=== PATIENT | female | born 2000 ===

== ENCOUNTER 2023-12-07 15:39 | Emergency (ER) | payer BC, SELFPAY ==
[2023-12-07 15:41] VITALS: BP 134/96
--- NOTE | 2023-12-07 17:31 | ED.GENMED ---
History of Present Illness
<Mila Interiano PA-C - Last Filed: 12/08/23 01:03>
General
Chief Complaint: Abdominal Symptoms
Source: patient and family (mom at bedside)
Exam Limitations: none
Time Seen by Provider: 12/07/23 17:12
Nursing documentation reviewed up to this point in time: agreed with
Travel History
Have you had any contact with someone who has COVID-19?: No
Do you have any symptoms of coronavirus? Fever > 100 degrees, chills, cough, shortness of breath, sore throat, loss of taste or smell, muscle aches, or headache?: No
History of Present Illness
History of Present Illness:
Patient is a 23-year-old female with history anxiety presenting for evaluation of lower abdominal pain. Symptoms started acutely this morning around 11 AM with lower abdominal pain and associated nausea. She did have a few episodes of vomiting
this morning. Patient does endorse some lower back pain, as well. She did start her period today and believed that she was having severe menstrual cramps. She has a history of painful menstrual cramps in the past but states this is much more
severe.
She denies any fever, chills, diarrhea/constipation, urinary symptoms. She denies any chest pain or shortness of breath.
She does have a history of ovarian cysts.
Of note�patient recently ran out of her prescription for Zoloft and has been unable to follow-up with her primary care provider to have this refilled. She has been increasingly anxious.
Phy Exam
<Mila Interiano PA-C - Last Filed: 12/08/23 01:03>
Physical Exam
Physical Exam:
General: Very anxious appearing, tremulous; nontoxic appearing
Vitals: Vital signs stable, mildly febrile
HEENT: Atraumatic, normocephalic; pupils equal round and reactive to light bilaterally, protecting airway
Neck: appears supple no JVD
CV: Regular rate and rhythm, heart sounds normal, no evidence of cyanosis
Resp: No evidence of respiratory distress, lungs clear bilaterally
Abd: Soft, somewhat diffuse tenderness most significant in right lower quadrant, no rebound tenderness or guarding, non-distended
Extremities: No deformities, no evidence of cyanosis or edema
Neuro: alert and oriented x 3; grossly intact
Psych: Anxious
Skin: Intact no rashes
Course
<Mila Interiano PA-C - Last Filed: 12/08/23 01:03>
Orders/Labs/Results
Orders:
Orders
12/07/23 17:35
0.9% Sodium Chloride 1000 ml [Nss] 1,000 ml IV BOLUS
Test Result ONCE
US Pelvis Only (non-obstetric) Urgent
Comment:
Reason For Exam: right lower quadrant pain
12/07/23 17:36
CT Abd/pel W Iv And Oral Contr Urgent
Comment:
Reason For Exam: right lower quadrant pain
Iohexol [Omnipaque] See Protocol PO NOW STA
12/07/23 18:20
Complete Blood Count/With Diff Urgent
Comprehensive Metabolic Panel Urgent
HCG, Serum Qualitative Screen Urgent
12/07/23 20:39
Urinalysis Reflex To Culture Urgent
Date Specimen was Collected: 12/07/23
Time Specimen was Collected: 20:37
Abnormal Lab Results
12/07/23
18:20
Hgb 11.3 L g/dL
(12.0-16.0)
Hct 33.8 L %
(37.0-47.0)
MCV 77.2 L fL
(81.0-99.0)
MCH 25.8 L pg
(27.0-31.0)
12/07/23 18:20
12/07/23 18:20
Vital Signs
Initial and Last Documented VS:
Initial Vital Signs
Temp Pulse Resp BP Pulse Ox
98.4 F 89 18 134/96 99
12/07/23 15:41 12/07/23 15:41 12/07/23 15:41 12/07/23 15:41 12/07/23 15:41
Last Documented Vital Signs
Temp Pulse Resp BP Pulse Ox
98.4 F 70 16 109/68 99
12/07/23 15:41 12/07/23 22:10 12/07/23 22:10 12/07/23 22:10 12/07/23 22:10
<Zeferino De La Torre, DO - Last Filed: 12/07/23 17:54>
Orders/Labs/Results
Orders:
Orders
12/07/23 17:35
0.9% Sodium Chloride 1000 ml [Nss] 1,000 ml IV BOLUS
Test Result ONCE
US Pelvis Only (non-obstetric) Urgent
Comment:
Reason For Exam: right lower quadrant pain
12/07/23 17:36
CT Abd/pel W Iv And Oral Contr Urgent
Comment:
Reason For Exam: right lower quadrant pain
Iohexol [Omnipaque] See Protocol PO NOW STA
12/07/23 18:20
Complete Blood Count/With Diff Urgent
Comprehensive Metabolic Panel Urgent
HCG, Serum Qualitative Screen Urgent
12/07/23 20:39
Urinalysis Reflex To Culture Urgent
Date Specimen was Collected: 12/07/23
Time Specimen was Collected: 20:37
Abnormal Lab Results
12/07/23
18:20
Hgb 11.3 L g/dL
(12.0-16.0)
Hct 33.8 L %
(37.0-47.0)
MCV 77.2 L fL
(81.0-99.0)
MCH 25.8 L pg
(27.0-31.0)
12/07/23 18:20
12/07/23 18:20
Vital Signs
Initial and Last Documented VS:
Initial Vital Signs
Temp Pulse Resp BP Pulse Ox
98.4 F 89 18 134/96 99
12/07/23 15:41 12/07/23 15:41 12/07/23 15:41 12/07/23 15:41 12/07/23 15:41
Last Documented Vital Signs
Temp Pulse Resp BP Pulse Ox
98.4 F 70 16 109/68 99
12/07/23 15:41 12/07/23 22:10 12/07/23 22:10 12/07/23 22:10 12/07/23 22:10
<Mila Interiano PA-C - Last Filed: 12/08/23 01:03>
MDM/Problems Addressed
Differential Diagnosis Includes:
Menstrual pain, ovarian cyst, ovarian torsion, tubo-ovarian abscess, appendicitis, UTI, kidney stone, pyelonephritis
MDM/Problems Addressed:
Patient is a 23-year-old female history anxiety, ovarian cysts presenting for evaluation of acute onset lower abdominal pain earlier today with associated nausea and vomiting. Some radiation to low back. Started her period today and initially
believed was severe menstrual cramps - feels similar but more intense. No fever, chills, urinary symptoms. Patient is very anxious appearing on initial examination, somewhat tremulous. Vitals are stable - low grade temp of 100.4. Physical exam as
documented above. Abdomen is soft, moderate tenderness in right lower quadrant without rebound or guarding. No CVA tenderness. Although symptoms consistent with menstrual cramps- given low grade fever and intensity of pain will check basic labs, UA,
hcg, pelvic US, and CT scan. Starting IVF. Patient denies pain medication at this time.
In to re-examine patient. She appears much less anxious, no longer tremulous. Labwork and imaging pending.
CBC without any clinically significant abnormalities. CMP shows no abnormalities. HCG negative. UA without any signs of infection.
US shows no acute findings. CT scan shows no acute abdominal process, appendix appears non-inflamed. Some nonspecific dilation of right ureter was noted without any evidence of stones- do not suspect this to be contributing to patients symptoms.
Workup negative. Patient relatively comfortable- has not required pain medication since arrival to ER. Temperature in normal range on reassessment - 98.4F. Symptoms likely related to menses onset. Will discharge with primary care/obgyn follow-up and
NSAIDs for pain. Given degree of anxiety and lapse in care- will provide script for patient to resume her zoloft with arrangement for pcp prompt follow-up. Patient and patients mom comfortable with this plan. All questions answered.
Chronic conditions affecting care:
Anxiety
Acute Exacerbation and/or Progression of Chronic Illness:
N/A
<Mila Interiano PA-C - Last Filed: 12/08/23 01:03>
*Radiology
Radiology exam reviewed: preliminary read by ED provider and radiology read reviewed
*Pulse Oximetry
Patient hypoxic: no
*Rotary Drier Operator Interpretation
Rate: Rotary Drier Operator- N/A
*Critical Care Note
Total Time (30-74mins, 75-104mins- exclusive of procedures): Not Applicable
ED Attending Note
<Mila Interiano PA-C - Last Filed: 12/08/23 01:03>
-
Portions of this chart may have been created with voice recognition software.� Occasional wrong word or��sound alike� substitutions may have occurred due to the inherent limitations of voice recognition software.
<Zeferino De La Torre DO - Last Filed: 12/07/23 17:54>
ED Attending Note
Patient seen and examined by attending physician: Yes
I performed the substantive portion of visit, reviewed & personally made and approve the management plan that is documented in note by myself or LEEANN.: Yes
ED Attending Note:
Seen with PA examined independently, 23-year-old female with ovarian cysts, painful periods, anxiety off her meds, presents with lower abdominal pain nausea, low-grade temperature here, trembling all appears anxious, will check hCG CBC, ultrasound
CAT scan try to get her feeling better
Discharge Plan
Departure
Patient Disposition: Home (Routine Discharge)
Date of Disposition: 12/07/23
Time of Disposition: 21:59
Patient with high blood pressure during this ER visit?: Yes
Condition: Good
Covid-19: Not Applicable
Discharge Problem:
Abdominal pain
Instructions: Abdominal Pain, BLOOD PRESSURE
Prescriptions:
New
sertraline 50 mg tablet
50 mg PO DAILY Qty: 30 0RF
Referrals:
Galdino Byers, DO [Family Provider] -
Activity Restrictions/Additional Instructions:
- Return to the emergency department with any high fevers, severe abdominal pain, persistent nausea, intractable vomiting, severe back pain, urinary symptoms, worsening in current symptoms, or any other concerns
-You can take ibuprofen as needed for discomfort
-It is important to stay well-hydrated
-As discussed�you should follow-up with primary care for further evaluation/management. I have sent in a request to connect you with a primary care provider.
Interventions
Interventions:
*Risk Screen - Suicide Last Done: 12/07/23 15:41
*General Assessment Last Done: 12/07/23 15:41
*Neglect/Abuse Screening Last Done: 12/07/23 15:41
ED- Fall Risk Assessment Last Done: 12/07/23 22:23
*ED COVID-19 Vaccine History Last Done: 12/07/23 15:41
*Nursing Disposition Last Done: 12/07/23 22:23
EE-Pttamd-Ilkiyueueh Assessment Last Done: 12/07/23 17:59
Discharge Date and Time
Discharge Date/Time: 12/07/23 22:23
[2023-12-07] MEDS: OMNIPAQUE 50 ML PO (17:45)
[2023-12-07] MEDS: NSS 1000 IV (18:23)
[2023-12-07 18:26] LABS: % Basophils 0.4 % (0-2); % Eosinophils 1.3 % (0-6); % Immature Granulocytes 0.1 % (0-0.5); % Lymphocytes 28.4 % (20.5-51.1); % Monocytes 8.2 % (1.7-9.3); % Neutrophils 61.6 % (42.2-75.2); Absolute Eosinophils 0.1 10^3/uL (0-0.7); Absolute Lymphocytes 2.1 10^3/uL (1.2-3.4); Absolute Monocytes 0.6 10^3/uL (0.1-0.6); Absolute Neutrophils 4.6 10^3/uL (1.4-6.5); Hematocrit 33.8 % (37.0-47.0); Hemoglobin 11.3 g/dL (12.0-16.0); Mean Corp Hgb Conc. 33.4 g/dL (33.0-37.0); Mean Corpuscular Hgb 25.8 pg (27.0-31.0); Mean Corpuscular Volume 77.2 fL (81.0-99.0); Mean Platelet Volume 10.1 fL (7.4-10.4); Nucleated Red Blood Cells % 0 %; Platelet Count 248 10^3/uL (130-400); Red Blood Cell Count 4.38 10^6/uL (4.20-5.40); Red Cell Dist. Width 13.3 % (11.5-14.5); White Blood Cell Count 7.4 10^3/uL (4.8-10.8)
[2023-12-07 18:42] LABS: HCG, Serum Qualitative Screen Negative
[2023-12-07 18:47] LABS: ALT (SGPT) 13 U/L (0-35); AST (SGOT) 19 U/L (14-36); Albumin 4.2 g/dl (3.5-5.0); Alkaline Phosphatase 69 U/L (38-126); Blood Urea Nitrogen 12 mg/dl (7-17); Calcium 9.6 mg/dl (8.4-10.2); Carbon Dioxide 25 mmol/L (22-30); Chloride 106 mmol/L (98-107); Glucose 96 mg/dl (70-99); Potassium 3.8 mmol/L (3.5-5.1); Sodium 140 mmol/L (135-145); Total Bilirubin 0.7 mg/dl (0.2-1.3); eGFR > 60.00
[2023-12-07 20:54] LABS: Urine Albumin Negative (Neg - Trace); Urine Bilirubin Negative (Negative); Urine Character Clear (Clear); Urine Color Yellow; Urine Glucose Negative (Negative); Urine Ketone Negative (Negative); Urine Leukocyte Negative (Negative); Urine Nitrite Negative (Negative); Urine Occult Blood Negative (Negative); Urine Urobilinogen Negative (Neg - 1+); Urine pH 6.5 (5.0-9.0)
[2023-12-07 22:10] VITALS: BP 109/68
== END 2023-12-07 22:23 | disposition home or self-care (01) ==
LOC: EMR 15:39
PROVIDERS: Physician Assistant; EMERGENCY PHYSICIAN Emergency Medicine; FAMILY PHYSICIAN Pediatrics
DX: R10.9 Unspecified abdominal pain (principal); R11.2 Nausea with vomiting, unspecified; F41.9 Anxiety disorder, unspecified; N83.201 Unspecified ovarian cyst, right side; R03.0 Elevated blood-pressure reading, without diagnosis of hypertension
CPT/HCPCS: 99285; 96360; 74177; 76856; 80053; 81003; 84703; 85025; Q9967

== ENCOUNTER 2024-05-11 02:03 | Emergency (ER) | payer BC, SELFPAY ==
[2024-05-11 02:07] VITALS: BP 132/80
--- NOTE | 2024-05-11 04:25 | ED.GENMED ---
History of Present Illness
General
Chief Complaint: Abdominal Pain
Source: patient, significant other and family
Exam Limitations: none
Time Seen by Provider: 05/11/24 03:34
Nursing documentation reviewed up to this point in time: agreed with
History of Present Illness
History of Present Illness:
23-year-old female presents with GERD. She states that it has been present since midnight. She does have a history of reflux but states that this is worse. Denies radiation. Patient does have a history of anxiety and depression. She does take
iron for iron deficiency anemia. Denies fever, chills, chest pain, or shortness of breath. Did have 1 episode of loose stools nonbloody in appearance.
Review of Systems
Review of Systems
Allergies reviewed?: Yes
All Other Systems: ROS reviewed and negative except as documented in HPI and ROS
Constitutional: Reports no symptoms
EENT: Reports no symptoms
Respiratory: Reports no symptoms
Cardiac: Reports no symptoms
ABD/GI: Reports abdominal pain, diarrhea and pain
: Reports no symptoms
Musculoskeletal: Reports no symptoms
Skin: Reports no symptoms
Neurological: Reports no symptoms
Endocrine: Reports no symptoms
Hematologic/Lymphatic: Reports no symptoms
Psychiatric: Reports no symptoms
Phy Exam
General Physical Exam
General Presentation: well appearing and no apparent distress
General Skin: warm and dry
General Habitus: normal
General Mental: alert
General Hydration: appears well hydrated
ENT Exam
ENT Exam: EOMI, pharynx normal, neck supple and normocephalic
Eye Exam
Eye Exam: PERRL, cornea clear and conjunctiva normal
Cardiovascular Exam
Cardiovascular Exam: regular rate/rhythm, no edema, no murmur and normal peripheral pulses
Pulmonary Exam
Pulmonary Exam: lungs clear, no respiratory distress, no rales, no crackles, no rhonchi, no stridor, no wheezing and no cough
Gastrointestinal Exam
Gastrointestinal Exam: normal bowel sounds, non tender, soft, no organomegaly, no pulsatile mass and non distended
Neurological Exam
Neurological Exam: alert, oriented x3, no motor deficits and speech normal
Musculoskeletal Exam
Musculoskeletal Exam: full ROM and no edema
Skin Exam
Skin Exam: normal color, warm/dry, no rash and no petechia
Psychiatric Exam
Psychiatric Exam: normal mood/affect
Course
Orders/Labs/Results
Orders:
Orders
05/11/24 04:04
EKG [Electrocardiogram (*1)] Urgent
Reason for Study: Other
Other Reason for Exam: GERD
05/11/24 04:05
EKG- Treatment ONCE
05/11/24 04:21
Mag Hydrox/Al Hydrox/Simeth [Maalox] 30 ml Phenobarb/Hyoscy/Atropine/Scop [] 10 ml PO NOW
05/11/24 04:22
CR Abdomen - 1 View Urgent
Comment:
Reason For Exam: epigastric pain
05/11/24 04:27
Phenobarb/Hyoscy/Atropine/Scop [] 10 ml .ROUTE .STK-MED ONE
05/11/24 04:28
Mag Hydrox/Al Hydrox/Simeth [Maalox] 30 ml .ROUTE .STK-MED ONE
05/11/24 02:11
05/11/24 02:11
Vital Signs
Initial and Last Documented VS:
Initial Vital Signs
Temp Pulse Resp BP Pulse Ox
98 F 98 22 132/80 100
05/11/24 02:07 05/11/24 02:07 05/11/24 02:07 05/11/24 02:07 05/11/24 02:07
Last Documented Vital Signs
Temp Pulse Resp BP Pulse Ox
98 F 82 17 128/84 97
05/11/24 02:07 05/11/24 05:40 05/11/24 05:40 05/11/24 05:40 05/11/24 05:40
*Critical Care Note
Total Time (30-74mins, 75-104mins- exclusive of procedures): Not Applicable
ED Attending Note
-
Portions of this chart may have been created with voice recognition software.� Occasional wrong word or��sound alike� substitutions may have occurred due to the inherent limitations of voice recognition software.
Discharge Plan
Departure
Patient Disposition: Home (Routine Discharge)
Date of Disposition: 05/11/24
Time of Disposition: 05:25
Patient with high blood pressure during this ER visit?: Yes
Condition: Good
Discharge Problem:
Gastroesophageal reflux disease
Instructions: Clear Liquid Diet, Acid Reflux and GERD in Adults (DC), BLOOD PRESSURE
Prescriptions:
New
omeprazole magnesium [Prilosec OTC] 20 mg tablet,delayed release (DR/EC)
20 mg PO DAILY 28 Days Qty: 28 0RF
sucralfate [Carafate] 100 mg/mL suspension
10 ml PO QID Qty: 200 0RF
ondansetron 4 mg tablet,disintegrating
4 mg PO Q8H PRN (Reason: nausea and vomiting) Qty: 10 0RF
No Action
sertraline 50 mg tablet
50 mg PO DAILY Qty: 30 0RF
Referrals:
Ailyn Acevedo CRNP [Family Provider] -
Activity Restrictions/Additional Instructions:
Your prescriptions were sent electronically to the pharmacy that you specified.
It was a pleasure meeting you and taking part in your care. We hope for your continued healing and wellness.
Please read discharge instructions in their entirety. However, they are for general education and may not describe your exact diagnosis at discharge. Information on your ER visit and medical conditions were discussed with you along with appropriate
follow up information...
If indicated, please take your medications as instructed and indicated on discharge paperwork.
Please schedule a follow up appointment as directed. Call to schedule an appointment
Please return to the emergency department with ANY change in, persisting, or worsening of symptoms. If any of your symptoms do not improve, or persist, or become more severe within 6-12 hours, please return to the emergency department for further
care.
Please return to the emergency department if you develop a headache, neck pain/stiffness, fever greater than 100.4F, chest pain, shortness of breath, persistent nausea, vomiting, slurred speech, difficulty walking, numbness/tingling, weakness, signs
of infection or any other symptoms that are worrisome to you.
If you have any questions or concerns please do not hesitate to call the Hospital at or E-mail me directly at [email or web address]
Interventions
Interventions:
*Risk Screen - Suicide Last Done: 05/11/24 02:07
*General Assessment Last Done: 05/11/24 04:12
*Neglect/Abuse Screening Last Done: 05/11/24 02:07
ED- Fall Risk Assessment Last Done: 05/11/24 04:13
*ED COVID-19 Vaccine History Last Done: 05/11/24 04:12
*Nursing Disposition Last Done: 05/11/24 05:43
GC-Ekghhf-Odmjwnraxt Assessment Last Done: 05/11/24 04:13
Discharge Date and Time
Discharge Date/Time: 05/11/24 05:44
Print Language: FRENCH
[2024-05-11] MEDS: MAALOX 40 PO (04:28)
[2024-05-11 04:32] VITALS: BMI 34.3
[2024-05-11 05:40] VITALS: BP 128/84
== END 2024-05-11 05:44 | disposition home or self-care (01) ==
LOC: EMR 02:03
PROVIDERS: EMERGENCY PHYSICIAN Student in an Organized Health Care Education/Training Program; FAMILY PHYSICIAN Nurse Practitioner
DX: K21.9 Gastro-esophageal reflux disease without esophagitis (principal); R10.9 Unspecified abdominal pain; F41.9 Anxiety disorder, unspecified; F32.A Depression, unspecified; D50.9 Iron deficiency anemia, unspecified
CPT/HCPCS: 99283; 74018; 93005